=== PATIENT | female | born 1990 | race Two or more races ===

== ENCOUNTER 2016-07-18 13:57 | Emergency (ER) | payer MEDICAID ==
[~2016-07-18] VITALS: Ht 154.9 cm; Wt 52.2 kg
[2016-07-18 14:45] VITALS: BP 124/78
== END 2016-07-18 14:52 | disposition home or self-care (01) ==
LOC: ER 14:02
DX: J02.9 Acute pharyngitis, unspecified (principal)

== ENCOUNTER 2018-08-22 13:09 | Emergency (ER) | payer MEDICAID, OTHER ==
[~2018-08-22] VITALS: Ht 154.9 cm; Wt 49.0 kg
[2018-08-22 13:52] VITALS: BP 120/60
== END 2018-08-22 14:36 | disposition home or self-care (01) ==
LOC: ER 13:14
DX: L20.9 Atopic dermatitis, unspecified (principal); J45.909 Unspecified asthma, uncomplicated

== ENCOUNTER 2019-01-19 12:44 | Emergency (ER) | payer OTHER ==
[~2019-01-19] VITALS: Ht 152.4 cm; Wt 49.9 kg
[2019-01-19 14:59] VITALS: BP 104/60
[2019-01-19] MEDS ORDERED: TETRACAINE HCL 0.5% OPTH(EYE) SOLN 4ML LEFTEYE ONE (15:45)
[2019-01-19] MEDS ORDERED: FLUORESCEIN SOD 1 MG TEST STRIP LEFTEYE ONE (15:45)
== END 2019-01-19 16:57 | disposition home or self-care (01) ==
LOC: ER 12:46
DX: S05.02XA Injury of conjunctiva and corneal abrasion without foreign body, left eye, initial encounter (principal); J45.909 Unspecified asthma, uncomplicated; F17.210 Nicotine dependence, cigarettes, uncomplicated; Z90.89 Acquired absence of other organs; X58.XXXA Exposure to other specified factors, initial encounter; Y93.89 Activity, other specified; Y92.89 Other specified places as the place of occurrence of the external cause; Y99.8 Other external cause status

== ENCOUNTER 2023-08-21 14:45 | Observation (INO) | payer OTHER ==
[~2023-08-21] VITALS: Ht 152.4 cm; Wt 70.3 kg
[2023-08-21] MEDS: TERBUTALINE SULFATE 1 MG/ML 1ML VIAL SC SCH (16:16)
[2023-08-21] MEDS ORDERED: PREN1TAB71 OR (17:12)
[2023-08-21] MEDS ORDERED: METF-370 PO (17:13)
[2023-08-21] MEDS ORDERED: LEVO100T8 PO (17:13)
== END 2023-08-21 17:26 | disposition home or self-care (01) ==
LOC: LDRP 14:45 → UNDOADMOB 14:45 → LDRP 15:01
PROVIDERS: ADMIT Obstetrics & Gynecology; ATTEND Obstetrics & Gynecology
DX: O24.419 Gestational diabetes mellitus in pregnancy, unspecified control (principal); O99.283 Endocrine, nutritional and metabolic diseases complicating pregnancy, third trimester; O26.893 Other specified pregnancy related conditions, third trimester; E03.9 Hypothyroidism, unspecified; R10.9 Unspecified abdominal pain; Z3A.31 31 weeks gestation of pregnancy; Z79.84 Long term (current) use of oral hypoglycemic drugs
CPT/HCPCS: 59025; 81002; 82948; 82962; 94760; 96372; G0378; J3105

== ENCOUNTER 2023-08-24 12:21 | Observation (INO) | payer OTHER ==
[~2023-08-24] VITALS: Ht 162.6 cm; Wt 68.0 kg
[~2023-08-24 12:21] MED LIST: LEVO100T8 PO; METF-370 PO; PREN1TAB71 OR
[2023-08-24] MEDS: TERBUTALINE SULFATE 1 MG/ML 1ML VIAL SC SCH (13:55)
== END 2023-08-24 14:44 | disposition home or self-care (01) ==
LOC: LDRP 12:21 → UNDOADMOB 12:21 → LDRP 12:24
PROVIDERS: ADMIT Obstetrics & Gynecology; ATTEND Obstetrics & Gynecology
DX: O24.419 Gestational diabetes mellitus in pregnancy, unspecified control (principal); Z3A.32 32 weeks gestation of pregnancy
CPT/HCPCS: 59025; 76818; 81002; 82948; 82962; 94760; 96372; G0378; J3105

== ENCOUNTER 2023-08-28 11:00 | Observation (INO) | payer OTHER | END 2023-08-28 13:05 | disposition home or self-care (01) | LOC: UNDOADMOB 11:01 → LDRP 11:01 → UNDODISOB 13:05 | PROVIDERS: ADMIT Obstetrics & Gynecology; ATTEND Obstetrics & Gynecology | DX: O24.419 Gestational diabetes mellitus in pregnancy, unspecified control (principal); O26.893 Other specified pregnancy related conditions, third trimester; R10.9 Unspecified abdominal pain; Z3A.32 32 weeks gestation of pregnancy | CPT/HCPCS: 59025; 76818; 81002; 82948; 82962; 94760; G0378 ==

== ENCOUNTER 2023-08-31 09:00 | Observation (INO) | payer OTHER | END 2023-08-31 10:24 | disposition home or self-care (01) | LOC: LDRP 09:00 | PROVIDERS: ADMIT Obstetrics & Gynecology; ATTEND Obstetrics & Gynecology | DX: O24.419 Gestational diabetes mellitus in pregnancy, unspecified control (principal); Z3A.33 33 weeks gestation of pregnancy; Z79.84 Long term (current) use of oral hypoglycemic drugs | CPT/HCPCS: 59025; 76818; 81002; 82948; 82962; 94760; G0378 ==

== ENCOUNTER 2023-09-04 08:50 | Observation (INO) | payer OTHER | END 2023-09-04 10:22 | disposition home or self-care (01) | LOC: LDRP 08:50 → UNDOADMOB 08:50 → LDRP 08:55 | PROVIDERS: ADMIT Obstetrics & Gynecology; ATTEND Obstetrics & Gynecology | DX: O24.419 Gestational diabetes mellitus in pregnancy, unspecified control (principal); Z3A.33 33 weeks gestation of pregnancy; Z79.84 Long term (current) use of oral hypoglycemic drugs | CPT/HCPCS: 59025; 76818; 81002; 82948; 94760; G0378 ==

== ENCOUNTER 2023-09-07 08:58 | Observation (INO) | payer OTHER | END 2023-09-07 10:06 | disposition home or self-care (01) | LOC: UNDOADMOB 08:58 → LDRP 08:58 | PROVIDERS: ADMIT Obstetrics & Gynecology; ATTEND Obstetrics & Gynecology | DX: O24.419 Gestational diabetes mellitus in pregnancy, unspecified control (principal); Z3A.34 34 weeks gestation of pregnancy | CPT/HCPCS: 59025; 76818; 81002; 82948; 82962; 94760; G0378 ==

== ENCOUNTER 2023-09-11 09:52 | Observation (INO) | payer OTHER | END 2023-09-11 12:09 | disposition home or self-care (01) | LOC: UNDOADMOB 09:58 → LDRP 09:58 | PROVIDERS: ADMIT Obstetrics & Gynecology; ATTEND Obstetrics & Gynecology | DX: O24.419 Gestational diabetes mellitus in pregnancy, unspecified control (principal); Z3A.34 34 weeks gestation of pregnancy; Z79.84 Long term (current) use of oral hypoglycemic drugs | CPT/HCPCS: 59025; 76818; 81002; 82948; 82962; G0378 ==

== ENCOUNTER 2023-09-13 09:01 | Observation (INO) | payer OTHER | END 2023-09-13 10:47 | disposition home or self-care (01) | LOC: LDRP 09:01 → UNDOADMOB 09:01 → LDRP 09:07 | PROVIDERS: ADMIT Obstetrics & Gynecology; ATTEND Obstetrics & Gynecology | DX: O24.419 Gestational diabetes mellitus in pregnancy, unspecified control (principal); Z3A.35 35 weeks gestation of pregnancy | CPT/HCPCS: 76818; 82962; G0378; 59025; 81002 ==

== ENCOUNTER 2023-09-18 11:00 | Observation (INO) | payer OTHER | END 2023-09-18 11:45 | disposition home or self-care (01) | LOC: LDRP 11:00 → UNDOADMOB 11:00 → LDRP 11:15 | PROVIDERS: ADMIT Obstetrics & Gynecology; ATTEND Obstetrics & Gynecology | DX: O24.419 Gestational diabetes mellitus in pregnancy, unspecified control (principal); Z3A.35 35 weeks gestation of pregnancy; Z79.899 Other long term (current) drug therapy | CPT/HCPCS: 59025; 76818; 81002; 82948; 82962; 94760; G0378 ==

== ENCOUNTER 2023-09-25 11:15 | Observation (INO) | payer OTHER | END 2023-09-25 12:46 | disposition home or self-care (01) | LOC: LDRP 11:15 → UNDOADMOB 11:15 → LDRP 11:18 | PROVIDERS: ADMIT Obstetrics & Gynecology; ATTEND Obstetrics & Gynecology | DX: O24.419 Gestational diabetes mellitus in pregnancy, unspecified control (principal); Z3A.36 36 weeks gestation of pregnancy | CPT/HCPCS: 59025; 76818; 81002; 82948; 94760; G0378 ==

== ENCOUNTER 2023-09-28 07:23 | Observation (INO) | payer OTHER | END 2023-09-28 09:25 | disposition home or self-care (01) | LOC: UNDOADMOB 08:06 → LDRP 08:06 | PROVIDERS: ADMIT Obstetrics & Gynecology; ATTEND Obstetrics & Gynecology | DX: O24.419 Gestational diabetes mellitus in pregnancy, unspecified control (principal); O99.283 Endocrine, nutritional and metabolic diseases complicating pregnancy, third trimester; E03.9 Hypothyroidism, unspecified; Z3A.37 37 weeks gestation of pregnancy | CPT/HCPCS: 59025; 76818; 81002; 82948; 82962; 94760; G0378 ==

== ENCOUNTER 2023-10-02 11:00 | Observation (INO) | payer OTHER | END 2023-10-02 12:31 | disposition home or self-care (01) | LOC: LDRP 11:00 → UNDOADMOB 11:00 → LDRP 11:14 | PROVIDERS: ADMIT Obstetrics & Gynecology; ATTEND Obstetrics & Gynecology | DX: O24.429 Gestational diabetes mellitus in childbirth, unspecified control (principal); Z3A.37 37 weeks gestation of pregnancy; Z79.899 Other long term (current) drug therapy | CPT/HCPCS: 59025; 76818; 81002; 82948; 94760; G0378 ==

== ENCOUNTER 2023-10-05 09:57 | Observation (INO) | payer OTHER ==
[2023-10-05] MEDS ORDERED: GLYB1.257 PO (12:12)
== END 2023-10-05 12:20 | disposition home or self-care (01) ==
LOC: UNDOADMOB 09:57 → LDRP 09:57
PROVIDERS: ADMIT Obstetrics & Gynecology; ATTEND Obstetrics & Gynecology
DX: O24.419 Gestational diabetes mellitus in pregnancy, unspecified control (principal); Z3A.38 38 weeks gestation of pregnancy
CPT/HCPCS: 59025; 76818; 81002; 82948; 82962; G0378

== ENCOUNTER 2023-10-09 09:13 | Observation (INO) | payer OTHER ==
[~2023-10-09 09:13] MED LIST changes: +GLYB1.257 PO
== END 2023-10-09 11:20 | disposition home or self-care (01) ==
LOC: UNDOADMOB 09:13 → LDRP 09:13
PROVIDERS: ADMIT Obstetrics & Gynecology; ATTEND Obstetrics & Gynecology
DX: O24.419 Gestational diabetes mellitus in pregnancy, unspecified control (principal); Z3A.38 38 weeks gestation of pregnancy; Z79.899 Other long term (current) drug therapy; Z91.040 Latex allergy status
CPT/HCPCS: 59025; 76818; 81002; 82948; 82962; 94760; G0378

== ENCOUNTER 2023-10-11 20:39 | Inpatient (IN) | payer OTHER ==
[~2023-10-11] VITALS: Ht 152.4 cm; Wt 82.6 kg
[2023-10-11] MEDS ORDERED: PHISODERM TOP SOLN 240ML BTL TOP PRN (21:00)
[2023-10-11] MEDS ORDERED: DERMOPLAST 60ML BOTTLE TOP PRN (21:00)
[2023-10-11] MEDS ORDERED: LIDOCAINE 2%HCL (LOCAL ANESTH.) INJ 20ML MDV IJ PRN (21:00)
[2023-10-11] MEDS ORDERED: WITCH HAZEL-GLYCERIN PAD TOP PRN (21:00)
[2023-10-11] MEDS ORDERED: BUTORPHANOL TARTRATE 2 MG/1 ML VIAL IV PRN (21:00)
[2023-10-11 21:46] LABS: Basophils # (auto) 0 10 ^3/uL (0-0.2); Basophils % (auto) 0.3 % (0.0-2.0); Eosinophils # (auto) 0.2 10 ^3/uL (0-0.8); Lymphocytes # (auto) 1.8 10 ^3/uL (0.4-5.4); Monocytes # (auto) 0.9 10 ^3/uL (0-1.3); Monocytes % (auto) 11.5 % (0.0-12.0); Neutrophils # (auto) 5.3 10 ^3/uL (1.6-8.6); Nucleated Red Blood Cells % 0.1 %; White Blood Cell 8.2 10^3/uL (4.4-10.8)
[2023-10-11 21:47] LABS: Eosinophils % (auto) 1.9 % (0.0-7.0); Hematocrit 32.2 % (36.0-46.0); Hemoglobin 10.3 g/dL (12.2-16.2); Lymphocytes % (auto) 21.8 % (10.0-50.0); Mean Corpuscular Hemoglobin 24.4 pg (28.0-32.0); Mean Corpuscular Hgb Conc. 32.1 g/dL (32.0-36.0); Neutrophils % (auto) 64.5 % (37.0-80.0); Red Blood Cells 4.24 10^6/uL (4.0-5.20); Red Cell Distribution Width 16.7 % (11.8-14.3)
[2023-10-11 22:01] LABS: Urine Bacteria FEW /hpf (None Seen); Urine Blood Negative /uL (Negative); Urine Clarity Turbid (Clear); Urine Color Yellow (Yellow); Urine Mucus FEW (None Seen); Urine Protein, UAD TRACE (Negative); Urine Specific Gravity 1.025 (1.001-1.035); Urine Urobilinogen Normal (Negative); Urine WBC 4 /hpf (0 - 5); Urine pH 5.5 (5.0-9.0)
[2023-10-11 22:06] LABS: Amphetamine Screen, Urine Neg (NEGATIVE)
[2023-10-11 22:07] LABS: Barbiturate Scree,Urine Neg (NEGATIVE); Benzodiazephine Screen, Urine Neg (NEGATIVE); Cannabinoid Screen, Urine Neg (NEGATIVE); Cocaine Screen, Urine Neg (NEGATIVE); Opiate Scree,Urine Neg (NEGATIVE); Phencyclidine Screen, Urine Neg (NEGATIVE)
[2023-10-11 22:09] LABS: Alanine Aminotransferase 10 U/L (7-40); Albumin 3.6 g/dL (3.2-4.8); Alkaline Phosphatase 185 U/L (46-116); Anion Gap 11 (5-15); Aspartate Aminotransferase 16 U/L (13-40); BUN/Creatinine Ratio 11.3 (10.0-20.0); Blood Urea Nitrogen 9 mg/dL (9-23); Carbon Dioxide 18 mmol/L (20-30); Chloride 107 mmol/L (98-107); Glucose 139 mg/dL (74-106); Potassium 3.7 mmol/L (3.5-5.1); Sodium 136 mmol/L (136-145)
[2023-10-11 22:10] LABS: Bilirubin, Total 0.4 mg/dL (0.2-1.0); Total Protein 6.2 g/dL (5.7-8.2)
[2023-10-11 22:38] LABS: INR 0.93 (0.9-1.15); Partial Thromboplastin Time 24.1 SEC (24.5-34.5); Prothrombin Time 9.9 sec (9.3-11.8)
[2023-10-12] MEDS: LACTATED RINGER'S 1,000 ML IV SCH (00:10)
[2023-10-12] MEDS: miSOPROStol 50 MCG per PRE-CUT 1/2 TAB PO PRN (00:10)
[2023-10-12] MEDS: LACT. RINGERS/OXYTOCIN 20UNITS 500 ML IV ONE ×2 (08:00→08:30)
[2023-10-12] MEDS: LEVOTHYROXINE SODIUM 100 MCG TAB PO SCH (09:03)
[2023-10-12] MEDS: D5W/LACTATED RINGERS 1,000 ML IV SCH (13:32)
[2023-10-12] MEDS: PENICILLIN G POT 5MIL/D5 50ML 50 ML IV ONE (16:27)
[2023-10-12] MEDS ORDERED: TERBUTALINE SULFATE 1 MG/ML 1ML VIAL SC PRN (17:15)
[2023-10-12] MEDS: LACT. RINGERS/OXYTOCIN 20UNITS 1,000 ML IV SCH (17:31)
[2023-10-12] MEDS: PENICILLIN G POTASSIUM 2,500,000 UNITS in D5W 5% 50 ML IV SCH (20:39)
[2023-10-13 06:06] LABS: RPR Non Reactive (Non Reactive)
[2023-10-13] MEDS: BUTORPHANOL TARTRATE 2 MG/1 ML VIAL IV PRN (09:06)
[2023-10-13] MEDS ORDERED: LIDOCAINE HCL 2 %PF INJ 10ML AMP IJ ONE (09:15)
[2023-10-13] MEDS ORDERED: fentaNYL CITRATE 100 MCG/2 ML VL IV ONE (09:15)
[2023-10-13] MEDS ORDERED: NALOXONE HCL 0.4 MG/ML VIAL IV ONE (09:15)
[2023-10-13] MEDS ORDERED: ePHEDrine SULFATE 50 MG/ML AMP IV ONE (09:15)
[2023-10-13] MEDS: LACTATED RINGER'S 1,000 ML IV ONE (11:50)
[2023-10-13] MEDS: ROPIVACAINE HCL 200 ML ONE (12:24)
[2023-10-13] MEDS: TRANEXAMIC ACID 1,000 MG in SODIUM CHL 0.9% 100 ML IV ONE (15:30)
[2023-10-13] MEDS ORDERED: miSOPROStol 100 mcg TAB PR PRN (15:30)
[2023-10-13] MEDS ORDERED: METHYLERGONOVINE MALEATE 0.2 MG/ML AMP IM PRN (15:30)
[2023-10-13] MEDS ORDERED: miSOPROStol 100 mcg TAB SL PRN (15:30)
[2023-10-13] MEDS: ONDANSETRON HCL 4 MG/2 ML VIAL IV PRN (15:55)
[2023-10-13] MEDS: ceFAZolin 1GM/50ML 50 ML IV SCH (15:56)
[2023-10-13] MEDS ORDERED: HYDR-4902 PO (20:50)
[2023-10-13] MEDS ORDERED: IBUP-1456 PO (20:50)
[2023-10-13] MEDS ORDERED: DOCU-94 PO (20:50)
[2023-10-13] MEDS: GUM (CHEWING) 1 GUM CHEW CHEW ONE (21:00)
[2023-10-13] MEDS ORDERED: LACT. RINGERS/OXYTOCIN 20UNITS 1,000 ML IV ONE (21:00)
[2023-10-13] MEDS ORDERED: ONDANSETRON HCL 4 MG/2 ML VIAL IV PRN ×2 (21:00→22:15)
[2023-10-13] MEDS: CARBOPROST TROMETHAMINE 250 MCG/1ML VIAL IM ONE (21:20)
[2023-10-13] MEDS ORDERED: oxyTOCIN 10 UNIT/ML 10ML VIAL ONE (21:29)
[2023-10-13] MEDS ORDERED: ONDANSETRON HCL 4 MG/2 ML VIAL ONE (21:30)
[2023-10-13] MEDS ORDERED: LIDOCAINE 2% (LOCAL ANESTH.) PF 5ml SDV ONE (21:30)
[2023-10-13] MEDS ORDERED: ceFAZolin 1GM VL ONE (21:30)
[2023-10-13] MEDS ORDERED: MORPHINE SULF PF 5 MG/10 ML VIAL ONE (21:38)
[2023-10-13] MEDS ORDERED: DIPHENOXYLATE W/ATROPINE 2.5 MG TAB PO PRN (21:45)
[2023-10-13] MEDS ORDERED: ceFAZolin 1GM/50ML 50 ML IV SCH (22:00)
[2023-10-13 22:07] VITALS: PULSE 96; RESP 20; O2SAT 100
[2023-10-13] MEDS ORDERED: NALOXONE HCL 0.4 MG/ML VIAL IV PRN (22:15)
[2023-10-13 22:30] VITALS: BP 122/73; PULSE 80; O2SAT 97
[2023-10-13 22:40] VITALS: BP 122/73; PULSE 88; RESP 18; TEMP 98; O2SAT 97
[2023-10-13] MEDS: ACETAMINOPHEN IV 1000 MG/100ML (10MG/ML) IV PRN (23:21)
[2023-10-13] MEDS: DIPHENOXYLATE W/ATROPINE 2.5 MG TAB PO ONE (23:29)
[2023-10-13 23:47] LABS: Basophils # (auto) 0 10 ^3/uL (0-0.2); Eosinophils # (auto) 0 10 ^3/uL (0-0.8); Lymphocytes # (auto) 0.9 10 ^3/uL (0.4-5.4); Nucleated Red Blood Cells % 0.1 %; Red Cell Distribution Width 16.7 % (11.8-14.3); White Blood Cell 15.2 10^3/uL (4.4-10.8)
[2023-10-13 23:48] LABS: Basophils % (auto) 0.2 % (0.0-2.0); Eosinophils % (auto) 0.1 % (0.0-7.0); Hematocrit 32.5 % (36.0-46.0); Hemoglobin 10.4 g/dL (12.2-16.2); Lymphocytes % (auto) 5.8 % (10.0-50.0); Mean Corpuscular Hemoglobin 24.3 pg (28.0-32.0); Mean Corpuscular Hgb Conc. 32.2 g/dL (32.0-36.0); Mean Corpuscular Volume 75.7 fL (80.0-100.0); Monocytes # (auto) 1.4 10 ^3/uL (0-1.3); Monocytes % (auto) 8.9 % (0.0-12.0); Neutrophils # (auto) 12.9 10 ^3/uL (1.6-8.6); Red Blood Cells 4.29 10^6/uL (4.0-5.20)
[2023-10-14] VITALS (13 sets, daily range): BP systolic 90–110; BP diastolic 48–66; PULSE 70–93; RESP 14–18; TEMP 97.5–98.8; O2SAT 93–97
[2023-10-14] MEDS: NALBUPHINE HCL 10 MG/1ml INJECTION SUBCUT ONE (03:22)
[2023-10-14] MEDS: TRANEXAMIC ACID 10 ML ONE (03:22)
[2023-10-14] MEDS: ceFAZolin 1GM/50ML 50 ML IV SCH (05:50)
[2023-10-14 07:39] LABS: Basophils # (auto) 0 10 ^3/uL (0-0.2); Basophils % (auto) 0.2 % (0.0-2.0); Eosinophils # (auto) 0.1 10 ^3/uL (0-0.8); Eosinophils % (auto) 0.5 % (0.0-7.0); Hematocrit 30.5 % (36.0-46.0); Hemoglobin 9.5 g/dL (12.2-16.2); Lymphocytes # (auto) 1.5 10 ^3/uL (0.4-5.4); Lymphocytes % (auto) 14.2 % (10.0-50.0); Mean Corpuscular Hemoglobin 25.1 pg (28.0-32.0); Mean Corpuscular Hgb Conc. 31.1 g/dL (32.0-36.0); Mean Corpuscular Volume 80.6 fL (80.0-100.0); Monocytes # (auto) 1.2 10 ^3/uL (0-1.3); Monocytes % (auto) 11.1 % (0.0-12.0); Neutrophils # (auto) 8.1 10 ^3/uL (1.6-8.6); Nucleated Red Blood Cells % 0.1 %; Red Blood Cells 3.79 10^6/uL (4.0-5.20); Red Cell Distribution Width 17.4 % (11.8-14.3); White Blood Cell 10.9 10^3/uL (4.4-10.8)
[2023-10-14] MEDS ORDERED: BISACODYL 10 MG RECT SUPP PR PRN (14:30)
[2023-10-14] MEDS: SIMETHICONE 80 MG CHEWABLE TABLET PO SCH (17:23)
[2023-10-14] MEDS: CEPHALEXIN 250 MG CAP PO SCH (17:23)
[2023-10-14] MEDS: HYDROcodone-ACET 5/325MG TAB PO PRN (17:23)
[2023-10-14] MEDS: DOCUSATE SOD 100 MG CAP PO SCH (22:28)
[2023-10-14] MEDS: FERROUS SULFATE 325mg EC TAB PO SCH (22:28)
[2023-10-14] MEDS: IBUPROFEN 800 MG TAB PO PRN (22:29)
[2023-10-15 03:00] VITALS: BP 100/58; PULSE 82; RESP 16; TEMP 98; O2SAT 96
[2023-10-15 07:01] VITALS: BP 105/68; PULSE 70; RESP 17; TEMP 98; O2SAT 98
[2023-10-15] MEDS: DOCUSATE CALCIUM 240 MG CAP PO SCH (10:08)
[2023-10-15 11:00] VITALS: BP 111/53; PULSE 75; RESP 16; TEMP 97.9; O2SAT 97
[2023-10-15] MEDS: HYDROcodone-ACET 5/325MG TAB PO PRN (11:06)
[2023-10-15 15:00] VITALS: BP 111/69; PULSE 80; RESP 16; TEMP 98.5; O2SAT 95
[2023-10-15 18:55] VITALS: BP 103/65; PULSE 91; RESP 17; TEMP 98.4; O2SAT 96
[2023-10-15 19:06] LABS: Treponema pallidum Ab (FTA-Ab) Non Reactive (Non Reactive)
== END 2023-10-15 20:16 | disposition home or self-care (01) | DRG 788 ==
LOC: LDRP 20:39
PROVIDERS: ADMIT Obstetrics & Gynecology; ATTEND Obstetrics & Gynecology
PROC: 10D00Z1 Extraction of Products of Conception, Low, Open Approach (ICD-10-PCS; principal; 2023-10-11)
PROC: 3E0DXGC Introduction of Other Therapeutic Substance into Mouth and Pharynx, External Approach (ICD-10-PCS; 2023-10-11)
DX: O24.429 Gestational diabetes mellitus in childbirth, unspecified control (principal); Z37.0 Single live birth; Z3A.39 39 weeks gestation of pregnancy; O62.2 Other uterine inertia; O99.345 Other mental disorders complicating the puerperium; F53.0 Postpartum depression; O61.8 Other failed induction of labor
CPT/HCPCS: 36415; 59025; 59200; 62282; 76818; 80053; 80307; 81001; 81002; 82948; 82962; 85025; 85610; 85730; 86592; 86850; 86900; 86901; 94760; 94762; 96360; 96361; 96365; 96366; 96374; 96375; G0378; J0131; J0690; J2001; J2405; J2540; J2590; J7060